=== PATIENT | female | born 1955 | race Caucasian/White ===

== ENCOUNTER → 2018-08-03 12:48 | Outpatient (CLI) | payer OTHER, SELFPAY ==
[2018-08-03 14:26] LABS: Blood Urea Nitrogen 18 mg/dL (7-17); Estimated Glomerular Filt Rate > 60.0 mL/min (>60)
== END ==
PROVIDERS: Family Provider Internal Medicine; PCP Internal Medicine; Visit Provider Internal Medicine
DX: M81.0 Age-related osteoporosis without current pathological fracture (principal)
CPT/HCPCS: 36415; 82565; 84520

== ENCOUNTER → 2021-08-09 09:13 | Outpatient (CLI) | payer MEDICARE, OTHER, SELFPAY ==
--- NOTE | 2021-08-09 | DI.RAD.S_ITS ---
PROCEDURE: XR DEXA AXIAL SKELETON INDICATIONS: Age-related osteoporosis without current pathologi COMPARISON: None. FINDINGS: This blank DEXA report has been sent in error by the PACS system. The correct and complete report will be forthcoming in 1-2 days. Thank you for your patience and understanding. Dictated by: Kaylee Heard MD, PhD on 08/09/2021 at 14:32 Approved by: Kaylee Heard MD, PhD on 08/09/2021 at 14:32
== END ==
PROVIDERS: Family Provider Internal Medicine; PCP Internal Medicine; Referring Provider Internal Medicine; Visit Provider Internal Medicine
DX: M85.88 Other specified disorders of bone density and structure, other site (principal); Z78.0 Asymptomatic menopausal state
CPT/HCPCS: 77080

== ENCOUNTER → 2021-12-10 06:38 | Outpatient (CLI) | payer MEDICARE, OTHER, SELFPAY ==
--- NOTE | 2021-12-10 | DI.MRI.S_ITS ---
PROCEDURE: MR BRAIN (IAC) WWO CON INDICATIONS: Sensorineural hearing loss, unilateral, left ear TECHNIQUE: Noncontrast sagittal T1 spin echo, axial FLAIR, axial gradient echo, axial diffusion and ADC through the brain. Axial thin-slice 3D CISS, coronal TruFISP, axial T1 spin echo with fat saturation through the internal auditory canals. After the administration of contrast, thin slice axial and coronal T1 spin echo with fat saturation through the internal auditory canals, and axial T1 spin echo with fat saturation through the brain. COMPARISON: None. FINDINGS: Image quality: Excellent. Cerebellopontine angles: No cerebellopontine angle masses. Inner ear structures appear normally formed. No suspicious enhancement in the internal auditory canal or along the course of the 7th cranial nerve. CSF spaces: Ventricles are normal in size and shape. No extra-axial fluid collections. Basal cisterns are patent. Brain: No intracranial bleeds or mass effects. Marshall-white matter interface is intact. No abnormal intracranial enhancement. Diffusion weighted images demonstrate no acute ischemic insults. Brainstem appears normal. Normal intravascular flow voids are present. Skull and face: Calvarial marrow signal is normal. Orbits appear normal. Sinuses: Sinuses and mastoids are predominantly clear. IMPRESSION: No finding to explain sensorineural hearing loss. Otherwise normal MRI of the brain. Dictated by: Woodrow Padilla M.D. on 12/10/2021 at 9:03 Approved by: Woodrow Padilla M.D. on 12/10/2021 at 9:05
== END ==
PROVIDERS: Family Provider Internal Medicine; PCP Internal Medicine; Referring Provider Otolaryngology; Visit Provider Otolaryngology
DX: H90.42 Sensorineural hearing loss, unilateral, left ear, with unrestricted hearing on the contralateral side (principal)
CPT/HCPCS: 70553

== ENCOUNTER 2022-02-17 09:47 | Emergency (ER) | payer MEDICARE, OTHER, SELFPAY ==
[2022-02-17 09:53] VITALS: BP 164/76; PULSE 86; RESP 14; TEMP 37.1; O2SAT 99; BMI 25.0
[2022-02-17 09:58] VITALS: PULSE 83; O2SAT 99
[2022-02-17 09:59] VITALS: BP 164/76; PULSE 88; O2SAT 99
[2022-02-17 10:00] VITALS: BP 169/84; PULSE 82; O2SAT 99
--- NOTE | 2022-02-17 10:07 | DI.CT.S_ITS ---
PROCEDURE: CT ANGIO HEAD AND NECK INDICATIONS: right eye visual changes resolved TECHNIQUE: Pre-contrast 4.5 mm thick sections acquired from the foramen magnum to the vertex. After the administration of intravenous contrast, 1 mm thick sections acquired from the aortic arch through the [place] of Harris. Post-contrast 4.5 mm thick sections then re-acquired from the foramen magnum to the vertex. 3-dimensional dbazgts-bhrdmywvi-rnhbmdiybt (MIP) and/or volume rendering reformats were acquired of the central intracranial vasculature and neck separately. For radiation dose reduction, the following was used: automated exposure control, adjustment of mA and/or kV according to patient size. COMPARISON: [facility], CT, HEAD WITHOUT CONTRAST, 11/15/2013, 13:53. [facility], MR, MR IAC (BRAIN) WWO CON, 12/10/2021, 6:50. FINDINGS: Image quality: Excellent. BRAIN: CSF spaces: Ventricles are normal in size and shape. Basal cisterns are patent. No extra-axial fluid collections. Brain: No midline shift. No intracranial bleeds or masses. Marshall-white matter interface appears intact. Skull and face: Calvarium and facial bones appear intact, without suspicious lesions. Orbits appear normal. Sinuses: Mucosal thickening or mucous retention cyst at the right maxillary sinus. Mastoids are clear. HEAD CT ANGIOGRAPHY: Anterior circulation: Intracranial internal carotid arteries are normal in size and flow. The flow within the paired anterior cerebral arteries is normal and symmetric. The flow within the middle cerebral arteries is normal and symmetric. The anterior communicating artery is seen. No aneurysms are seen. Posterior circulation: Visualized portions of the vertebral arteries demonstrate normal caliber, and join to form a normal appearing basilar artery. Flow within the posterior cerebral arteries is normal and symmetric. No aneurysms are seen. NECK CT ANGIOGRAPHY: Carotid system: Mild plaque at the aortic arch. The great vessels demonstrate a conventional anatomy as they arise from the aortic arch. The origins of the common carotid arteries appear patent. The common carotid arteries demonstrate normal caliber and courses. The bifurcation regions are both widely patent. Minimal plaque at the left carotid bulb. The internal carotid arteries demonstrate normal calibers and courses. Posterior circulation: The origins of the vertebral arteries both appear widely patent. The more superior extracranial portions of both vertebral arteries also demonstrate normal courses and calibers. They join to form a normal appearing basilar artery. Soft tissues: Visualized neck soft tissues demonstrate no suspicious abnormalities. Bones: No suspicious bony lesions. Visualized cervical spine appears normally aligned. IMPRESSION: 1. No acute intracranial hemorrhage. 2. No large vessel occlusion. 3. No critical stenosis. Any quantitative measurements of stenosis were performed using NASCET criteria. Dictated by: Ryan Cline M.D. on 02/17/2022 at 11:30 Approved by: Ryan Cline M.D. on 02/17/2022 at 11:41
--- NOTE | 2022-02-17 10:14 | ED_ITS ---
HPI - Neuro Symptoms/Deficit General Chief Complaint: Eye Problems Stated Complaint: Poss TIA sent by [facility] Time Seen by Provider: 02/17/22 10:02 Source: patient Mode of arrival: Ambulatory History of Present Illness HPI Narrative: Patient is a 66-year-old female who has no past medical history presenting with right eye visual changes. She had some circular blackening in her right upper quadrant 2 days ago. It came and went a couple of times in the evening. She said it lasted for 10 minutes at a time and happened about 3 times and has gone away. At no time did she have any facial droop difficulty speaking numbness tingling or weakness. She has no prior history of TIA or CVA. She has no chest pain or shortness of breath. She does have a cataract in that eye. She went and saw her radiocommunications technician who looked at her I said she is not having a retinal detachment or any other ocular problems was recommended that she be checked for a TIA. She culture PCP this morning who recommended she come to the ED for further evaluation. At this time patient is completely asymptomatic. On Anticoagulants: No Related Data Home Medications Medication Instructions Recorded Confirmed [FOLIC ACID] 800 PO QDAY ##0 11/17/10 11/20/19 [VITAMIN D-3] 2,000 PO PRN PRN ##0 11/17/10 11/20/19 calcium carbonate 500 mg-vitamin 1 tab PO ##0 09/16/16 11/20/19 D3 5 mcg (200 unit) tablet (Oyster Shell Calcium-Vitamin D3) miconazole nitrate 2 % topical 30 gm TP ##0 10/20/17 11/20/19 powder (Zeasorb AF) omeprazole 20 mg capsule,delayed 20 mg PO DAILY 11/02/11/20/19 release Previous Rx's Medication Instructions Recorded estradiol 2 mg (7.5 mcg/24 hour) See Rx Instructions .Route 06/18/21 vaginal ring (Estring) .COMPLEX ##1 Allergies Allergy/AdvReac Type Severity Reaction Status Date / Time peanut Allergy Intermediate BLISTERS Verified 02/17/22 10:03 TO TONGUE, RASH Pork/Porcine Containing AdvReac Intermediate VOMITING Verified 02/17/22 10:03 Products Review of Systems Review of Systems Narrative: GENERAL: Denies chills, fatigue, malaise, fever, sweats, travel HEENT:+ eye changes, see HPI Denies sinus pain, ear pain, sore throat, d ifficulty swallowing, neck pain RESPIRATORY: Denies dyspnea, cough, wheezing, hemoptysis, sputum. CARDIOVASCULAR: Denies chest pain, palpitations, orthopnea, edema GASTROINTESTINAL: Denies nausea, vomiting, abdominal pain, diarrhea, constipation, melena. : Denies dysuria, frequency, incontinence, hematuria, urinary retention, flank pain. MUSCULOSKELETAL: Denies weakness, joint pain, or bony pain SKIN: No rash, no erythema, no pruritus NEUROLOGIC: Denies weakness, dizziness, headache, numbness, change in speech, confusion PSYCHIATRIC: No concerning psychosocial issues. 12 point review of systems is negative except for those stated above and HPI Hematologic/Lymphatic On Anticoagulants: No Patient History Surgical History Status post appendectomy Status post arthroscopy Status post delivery Status post rhinoplasty Status post tonsillectomy and adenoidectomy Family History Brother Age: 71 Smoker Father Age: 94 Cancer Hypertension High cholesterol Bladder cancer Grandfather Cancer Hypertension Chlorine gas exposure Mother Age: 94 Atrial fibrillation Hypertension High cholesterol Mental health problem Grandfather Diabetes mellitus Heart disease High cholesterol Grandmother Asthma Sister Age: 74 Breast cancer Brain cancer Social History Smoking Status: Never smoker Smoking Status: Never smoker alcohol intake frequency: holidays/special occasions only Substance Use Type: does not use Exam Initial Vital Signs Initial Vital Signs: Vital Signs Temperature 98.7 F 02/17/22 09:53 Pulse Rate 86 02/17/22 09:53 Respiratory Rate 14 02/17/22 09:53 Blood Pressure 164/76 H 02/17/22 09:53 Pulse Oximetry 99 02/17/22 09:53 Oxygen Delivery Method 02/17/22 09:53 GENERAL: Alert well-appearing 66-year-old female HEENT: Head atraumatic,EOMI, pupils reactive, face symmetric, moist mucous membranes CARDIOVASCULAR: Regular rate and rhythm without murmurs, rubs or gallops. RESPIRATORY: Breath sounds equal bilaterally, no wheezes rales or rhonchi. ABDOMEN: Soft, nontender. Normoactive bowel sounds all 4 quadrants. No guarding or rebound. EXTREMITIES: Normal range of motion, no clubbing or edema. Neurovascularly intact NEUROLOGICAL: Alert and oriented x4.Normal gait and speech. Cranial nerves II through XII grossly intact. Good jojurn-ai-bcqo, good xdjl-li-zpdk, strength equal bilaterally, no dysarthria or aphasia, sensation in tact to soft touch bilaterally, no visual changes, no facial droop no peripheral visual loss SKIN: Warm, dry, no laceration, no petechiae, no rashes or lesions. Scores NIH Stroke Scale Level of Conciousness: Alert, keenly responsive Ask month/age: Answers both questions correctly. Open/close eyes, close hand: Performs both tasks correctly Best gaze horizontal: Normal Visual drake: No visual loss Facial palsy: Normal symetrical movement Left arm drift: No drift for full 10 sec Right arm drift: No drift for full 10 sec Left leg drift: No drift for full 5 sec Right leg drift: No drift for full 5 sec Limb ataxia: Absent Sensory on face/arms/legs: Normal, no sensory loss Best language: No aphasia, normal Dysarthria: Normal Extinction or inattention: No abnormality Total NIH Stroke scale score: 0 Course Orders Ordered: ED Orders 02/17/22 10:07 CT angio head and neck Stat EKG-12 Lead Stat 02/17/22 10:13 Complete Blood Count AUTO DIFF Stat Comprehensive Metabolic Panel Stat Lipase Stat Troponin & CK Cardiac Panel Stat Vital Signs Vital signs: Vital Signs - 8 hr 02/17/22 09:53 02/17/22 09:58 02/17/22 09:59 Temperature 98.7 F Pulse Rate 86 83 Respiratory Rate 14 Blood Pressure 164/76 H 164/76 H Pulse Oximetry 99 99 Oxygen Delivery Method Room Air 02/17/22 09:59 02/17/22 10:00 02/17/22 10:00 Temperature Pulse Rate 88 82 Respiratory Rate Blood Pressure 169/84 H Pulse Oximetry 99 99 Oxygen Delivery Method 02/17/22 10:30 02/17/22 10:30 Temperature Pulse Rate 74 Respiratory Rate Blood Pressure 124/72 Pulse Oximetry 98 Oxygen Delivery Method MDM - Neuro Symptoms/Deficit Lab Data Result diagrams: 02/17/22 10:13 02/17/22 10:13 Labs: Lab Results 02/17/22 02/17/22 Range/Units 10:13 10:13 WBC 4.3 L (4.5-11.0) X10^3/uL RBC 4.23 (4.0-5.2) X10^6/uL Hgb 13.2 (12.0-16.0) g/dL Hct 38.5 (36-46) % MCV 91.2 (80-100) fL MCH 31.3 (26-34) PG MCHC 34.3 (30-36) % RDW 12.7 (11.6-14.8) % Plt Count 212 (150-400) X10^3/uL Neut % (Auto) 55.3 (50-75) % Lymph % (Auto) 34.9 (25-40) % Bradford % (Auto) 7.9 (3-14) % Eos % (Auto) 1.0 L (2-4) % Baso % (Auto) 0.9 (0-2) % Neut # (Auto) 2400 (7668-0666) /uL Lymph # (Auto) 1500 (4524-0186) /uL Bradford # (Auto) 300 (0-900) /uL Eos # (Auto) 0 (0-450) /uL Baso # (Auto) 0 (0-100) /uL Sodium 143 (137-145) mmol/L Potassium 4.0 (3.4-5.1) mmol/L Chloride 104 (98-107) mmol/L Carbon Dioxide 28 (22-32) mmol/L BUN 16 (7-17) mg/dL Creatinine 0.74 (0.52-1.04) mg/dL Estimated GFR > 60 (>60) mL/min BUN/Creatinine Ratio 21.6 (6-22) Glucose 100 (80-110) mg/dL Calcium 9.3 (8.4-10.2) mg/dL Total Bilirubin 0.6 (0.2-1.3) mg/dL AST 25 (14-36) IU/L ALT 25 (<35) IU/L Alkaline Phosphatase 54 (38-126) U/L Total Creatine Kinase 113 (30-135) U/L CK-MB (CK-2) 1.04 (<2.37) ng/mL CK-MB (CK-2) Rel Index 0.9 L (1.5-5.0) % Troponin I < 0.012 (0.01-0.034) ng/mL Total Protein 7.6 (6.3-8.2) g/dL Albumin 4.7 (3.5-5.0) g/dL Globulin 2.9 (1.7-4.1) g/dL Albumin/Globulin Ratio 1.6 (1.0-2.8) Lipase 122 (23-300) U/L Imaging Data CTA - brain/neck: Radiologist's Impression: [address] [place] [id number] Scan Report Signed Patient: Deisy Sofia MR#: [id number] : 1955 Acct:[id number] Age/Sex: 66 / F Date of Service: 02/17/22 Loc: ED Accession Number: [id number] ?? Procedure: CT angio head and neck Ordering Provider: Kristen Davis D.O. PROCEDURE:? CT ANGIO HEAD AND NECK ? INDICATIONS:? right eye visual changes resolved ? TECHNIQUE:? Pre-contrast 4.5 mm thick sections acquired from the foramen magnum to the vertex.? After the administration of intravenous contrast, 1 mm thick sections acquired from the aortic arch through the [place] of [place].? Post-contrast 4.5 mm thick sections then re- acquired from the foramen magnum to the vertex.? 3-dimensional dyjwqww-nctkviiyt-lxzlinkehp (MIP) and/or volume rendering reformats were acquired of the central intracranial vasculature and neck separately. For radiation dose reduction, the following was used:? automated exposure control, adjustment of mA and/or kV according to patient size.? ? COMPARISON:? [facility], CT, HEAD WITHOUT CONTRAST, 11/15/2013, 13:53.? [facility], MR, MR IAC (BRAIN) WWO CON, 12/10/2021, 6:50. ? FINDINGS:? Image quality:? Excellent.? ? BRAIN:? CSF spaces:? Ventricles are normal in size and shape.? Basal cisterns are patent.? No extra-axial fluid collections.? ? Brain:? No midline shift.? No intracranial bleeds or masses.? Marshall-white matter interface appears intact.? ? Skull and face:? Calvarium and facial bones appear intact, without suspicious lesions.? Orbits appear normal.? ? Sinuses:? Mucosal thickening or mucous retention cyst at the right maxillary sinus.? Mastoids are clear. ? HEAD CT ANGIOGRAPHY:? Anterior circulation:? Intracranial internal carotid arteries are normal in size and flow.? The flow within the paired anterior cerebral arteries is normal and symmetric.? The flow within the middle cerebral arteries is normal and symmetric.? The anterior communicating artery is seen.? No aneurysms are seen.? ? Posterior circulation:? Visualized portions of the vertebral arteries demo nstrate normal caliber, and join to form a normal appearing basilar artery.? Flow within the posterior cerebral arteries is normal and symmetric.? No aneurysms are seen.? ? NECK CT ANGIOGRAPHY:? Carotid system:? Mild plaque at the aortic arch.? The great vessels demonstrate a conventional anatomy as they arise from the aortic arch.? The origins of the common carotid arteries appear patent.? The common carotid arteries demonstrate normal caliber and courses.? The bifurcation regions are both widely patent.? Minimal plaque at the left carotid bulb.? The internal carotid arteries demonstrate normal calibers and courses.? ? Posterior circulation:? The origins of the vertebral arteries both appear widely patent.? The more superior extracranial portions of both vertebral arteries also demonstrate normal courses and calibers.? They join to form a normal appearing basilar artery.? ? Soft tissues:? Visualized neck soft tissues demonstrate no suspicious abnormalities.? ? Bones:? No suspicious bony lesions.? Visualized cervical spine appears normally aligned.? IMPRESSION:? 1. No acute intracranial hemorrhage. ? 2. No large vessel occlusion. ? 3. No critical stenosis. ? ? Any quantitative measurements of stenosis were performed using NASCET criteria.? ? ? Dictated by: Ryan Cline M.D. on 02/17/2022 at 11:30 ?? ECG Data Interpretation: Normal sinus rhythm rate 70 p.r. interval 126 QRS [address] changes no T- wave inversions no priors to compare MDM Narrative Medical decision making narrative: Has some visual changes 2 days ago which have completely resolved and not returned. She ceiling and evaluated by ophthalmology determined it was not optic in nature. CT angio today is negative. It is possible that she did have minor TIA. Recommend aspirin daily she can follow up with her primary for provider. Discharge Plan Departure Patient Disposition: Home Clinical Impression: Brain TIA Instructions: DI for Transient Ischemic Attack Activity Restrictions/Additional Instructions: *You have been diagnosed with possible TIA *What to do: At this time your workup in the emergency department is negative. However I do recommend MRI and echocardiogram with your pcp *Continue to take medications as directed Aspirin 81 mg daily *Follow up with your primary care provider in 2-3 days or call [phone] *Return to ER if you should have recurrent visual changes numbness tingling weakness facial droop or any new, worsening or concerning symptoms Prescriptions: No Action [FOLIC ACID] 800 PO QDAY Qty: 0 [VITAMIN D-3] 2,000 PO PRN PRNQty: 0 calcium carbonate-vitamin D3 [Oyster Shell Calcium-Vit D3] 1,250 MG/200 IU tablet 1 tab PO Qty: 0 miconazole nitrate [Zeasorb AF] 70 GM powder 30 gm TP Qty: 0 Estring 2 mg (7.5 mcg /24 hour) ring See Rx Instructions .ROUTE .COMPLEX Qty: 1 3RF Dose Instruction: INSERT ONE VAGINAL RING VAGINALLY, REMOVE IN 3 MONTHS Rx Instructions: INSERT ONE VAGINAL RING VAGINALLY, REMOVE IN 3 MONTHS omeprazole 20 mg capsule,delayed release(DR/EC) 20 mg PO DAILY Referrals: Brielle Butler MD [Primary Care Provider] - Visit Report Forms: Patient Portal/API
[2022-02-17 10:26] LABS: Add Manual Diff / Slide Review NO; Basophils Absolute Auto 0 /uL (0-100); Basophils Percent Auto 0.9 % (0-2); Eosinophils Absolute Auto 0 /uL (0-450); Hematocrit 38.5 % (36-46); Hemoglobin 13.2 g/dL (12.0-16.0); Lymphocytes Absolute Auto 1500 /uL (1100-4500); Lymphocytes Percent Auto 34.9 % (25-40); Mean Corpuscular HGB Conc 34.3 % (30-36); Mean Corpuscular Hemoglobin 31.3 PG (26-34); Mean Corpuscular Volume 91.2 fL (80-100); Monocytes Absolute Auto 300 /uL (0-900); Monocytes Percent Auto 7.9 % (3-14); Neutrophils Absolute Auto 2400 /uL (1500-7000); Neutrophils Percent Auto 55.3 % (50-75); Platelet Count 212 X10^3/uL (150-400); Red Blood Cell Count 4.23 X10^6/uL (4.0-5.2); Red Cell Distribution Width 12.7 % (11.6-14.8); White Blood Cell Count 4.3 X10^3/uL (4.5-11.0)
[2022-02-17 10:30] VITALS: BP 124/72; PULSE 74; O2SAT 98
[2022-02-17 10:43] LABS: Alanine Aminotransferase 25 IU/L (<35); Albumin 4.7 g/dL (3.5-5.0); Albumin Globulin Ratio 1.6 (1.0-2.8); Alkaline Phosphatase 54 U/L (38-126); Aspartate Aminotransferase 25 IU/L (14-36); BUN Creatinine Ratio 21.6 (6-22); Bilirubin Total 0.6 mg/dL (0.2-1.3); Blood Urea Nitrogen 16 mg/dL (7-17); Calcium 9.3 mg/dL (8.4-10.2); Carbon Dioxide 28 mmol/L (22-32); Chloride 104 mmol/L (98-107); Creatine Kinase 113 U/L (30-135); Estimated Glomerular Filt Rate > 60 mL/min (>60); Globulin 2.9 g/dL (1.7-4.1); Glucose 100 mg/dL (80-110); HEMOLYSIS < 15 (0-50); Lipase 122 U/L (23-300); Sodium 143 mmol/L (137-145); Total Protein 7.6 g/dL (6.3-8.2)
[2022-02-17 10:55] LABS: Troponin I < 0.012 ng/mL (0.01-0.034)
[2022-02-17 10:59] LABS: CKMB % Relative Index 0.9 % (1.5-5.0); Creatine Kinase MB 1.04 ng/mL (<2.37)
== END 2022-02-17 12:03 | disposition home or self-care (01) ==
PROVIDERS: Emergency Provider Emergency Medicine; Family Provider Internal Medicine; PCP Family Medicine
DX: G45.9 Transient cerebral ischemic attack, unspecified (principal); R03.0 Elevated blood-pressure reading, without diagnosis of hypertension
CPT/HCPCS: 36415; 70496; 70498; 80053; 82550; 82553; 83690; 84484; 85025; 93005; 93010; 99283; Q9967

== ENCOUNTER 2022-02-18 14:43 | Emergency (ER) | payer MEDICARE, OTHER, SELFPAY ==
[2022-02-18 15:04] VITALS: BP 141/84; PULSE 80; RESP 20; TEMP 36.2; O2SAT 98; BMI 24.4
--- NOTE | 2022-02-18 15:40 | DI.MRI.S_ITS ---
PROCEDURE: MR HEAD/BRAIN WO CON INDICATIONS: Visual changes full workup couple days ago TECHNIQUE: Noncontrast axial T1 spin echo, axial T2 fast spin echo, sagittal and axial FLAIR, coronal T2 fast spin echo, axial gradient echo, axial diffusion and ADC through the brain. COMPARISON: [facility], MR, MR IAC (BRAIN) WWO CON, 12/10/2021, 6:50. FINDINGS: Image quality: Excellent. CSF Spaces: Basal cisterns are patent. No extra-axial fluid collections. Ventricles are normal in size and shape. Brain: No intracranial masses or hemorrhage. Marshall/white matter interface is normal. Brainstem appears normal. Diffusion-weighted images demonstrate no acute ischemic insult. No chronic ischemic insults. Normal intravascular flow voids are present. Skull and face: Calvarium has normal marrow signal. Orbits appear normal. Sinuses: Sinuses and mastoids are clear. IMPRESSION: No acute finding. No abnormality to explain symptoms. No significant change from 12/10/2021 exam. Dictated by: Woodrow Padilla M.D. on 02/18/2022 at 18:41 Approved by: Woodrow Padilla M.D. on 02/18/2022 at 18:46
[2022-02-18 16:18] VITALS: BP 124/70; PULSE 73; RESP 18; O2SAT 100
[2022-02-18 17:09] VITALS: BP 119/67; PULSE 72; RESP 16; O2SAT 98
--- NOTE | 2022-02-18 18:39 | ED.NEUROSD ---
HPI - Neuro Symptoms/Deficit General Chief Complaint: Eye Problems Stated Complaint: Visual Disturbance in Rt Eye Time Seen by Provider: 02/18/22 18:06 Source: patient Mode of arrival: Ambulatory History of Present Illness HPI Narrative: Patient is a 66-year-old female with no past medical history presenting with right eye visual changes. I saw and evaluated her yesterday. She had a full workup including head CT CT angio blood work EKG. She has intermittently had these right upper quadrant visual changes which she describes as a black cervical. Yesterday her workup was negative she has follow-up with her PCP she has been taking aspirin. She has no prior history. She does have a cataract not eye. She actually saw an granite countertop installer it was determined that she does not have a retinal detachment or ocular problem. She was driving today around 2:15pm when she again had a visual change. She said it lasted very briefly. Under 5 minutes she again had absolutely no other symptoms. I instructed her yesterday to return if her symptoms return. On Anticoagulants: No Related Data Home Medications Medication Instructions Recorded Confirmed [FOLIC ACID] 800 PO QDAY ##0 11/17/10 11/20/19 [VITAMIN D-3] 2,000 PO PRN PRN ##0 11/17/10 11/20/19 calcium carbonate 500 mg-vitamin 1 tab PO ##0 09/16/16 11/20/19 D3 5 mcg (200 unit) tablet (Oyster Shell Calcium-Vitamin D3) miconazole nitrate 2 % topical 30 gm TP ##0 10/20/17 11/20/19 powder (Zeasorb AF) omeprazole 20 mg capsule,delayed 20 mg PO DAILY 11/02/18 11/20/19 release Previous Rx's Medication Instructions Recorded estradiol 2 mg (7.5 mcg/24 hour) See Rx Instructions .Route 06/18/21 vaginal ring (Estring) .COMPLEX ##1 Allergies Allergy/AdvReac Type Severity Reaction Status Date / Time peanut Allergy Intermediate BLISTERS Verified 02/18/22 15:12 TO TONGUE, RASH Pork/Porcine Containing AdvReac Intermediate VOMITING Verified 02/18/22 15:12 Products Review of Systems Review of Systems Narrative: GENERAL: Denies chills, fatigue, malaise, fever, sweats, travel HEENT: See HPI RESPIRATORY: Denies dyspnea, cough, wheezing, hemoptysis, sputum. CARDIOVASCULAR: Denies chest pain, palpitations, orthopnea, edema GASTROINTESTINAL: Denies nausea, vomiting, abdominal pain, diarrhea, constipation, melena. : Denies dysuria, frequency, incontinence, hematuria, urinary retention, flank pain. MUSCULOSKELETAL: Denies weakness, joint pain, or bony pain SKIN: No rash, no erythema, no pruritus NEUROLOGIC: Denies weakness, dizziness, headache, numbness, change in speech, confusion PSYCHIATRIC: No concerning psychosocial issues. 12 point review of systems is negative except for those stated above and HPI Hematologic/Lymphatic On Anticoagulants: No Patient History Surgical History Status post appendectomy Status post arthroscopy Status post delivery Status post rhinoplasty Status post tonsillectomy and adenoidectomy Family History Brother Age: 71 Smoker Father Age: 94 Cancer Hypertension High cholesterol Bladder cancer Grandfather Cancer Hypertension Chlorine gas exposure Mother Age: 94 Atrial fibrillation Hypertension High cholesterol Mental health problem Grandfather Diabetes mellitus Heart disease High cholesterol Grandmother Asthma Sister Age: 74 Breast cancer Brain cancer Social History Smoking Status: Never smoker Smoking Status: Never smoker alcohol intake frequency: holidays/special occasions only Substance Use Type: does not use Exam Initial Vital Signs Initial Vital Signs: Vital Signs Temperature 97.2 F L 02/18/22 15:04 Pulse Rate 80 02/18/22 15:04 Respiratory Rate 20 02/18/22 15:04 Blood Pressure 141/84 H 02/18/22 15:04 Pulse Oximetry 98 02/18/22 15:04 Oxygen Delivery Method 02/18/22 15:04 GENERAL: Alert pleasant 66-year-old male and in no acute distress. HEENT: Head atraumatic,EOMI, pupils reactive, face symmetric, moist mucous membranes CARDIOVASCULAR: Regular rate and rhythm without murmurs, rubs or gallops. RESPIRATORY: Breath sounds equal bilaterally, no wheezes rales or rhonchi. EXTREMITIES: Normal range of motion, no clubbing or edema. Neurovascularly intact NEUROLOGICAL: Alert and oriented x4.Normal gait and speech. Cranial nerves II through XII grossly intact. Good [id number], good kuuc-cm-wket, strength equal bilaterally, no dysarthria or aphasia, sensation in tact to soft touch bilaterally, no visual changes, no facial droop SKIN: Warm, dry, no laceration, no petechiae, no rashes or lesions. Scores NIH Stroke Scale Level of Conciousness: Alert, keenly responsive Ask month/age: Answers both questions correctly. Open/close eyes, close hand: Performs both tasks correctly Best gaze horizontal: Normal Visual drake: No visual loss Facial palsy: Normal symetrical movement Left arm drift: No drift for full 10 sec Right arm drift: No drift for full 10 sec Left leg drift: No drift for full 5 sec Right leg drift: No drift for full 5 sec Limb ataxia: Absent Sensory on face/arms/legs: Normal, no sensory loss Best language: No aphasia, normal Dysarthria: Normal Extinction or inattention: No abnormality Total NIH Stroke scale score: 0 Course Orders Ordered: ED Orders 02/18/22 15:40 MR head/brain wo con Stat Vital Signs Vital signs: Vital Signs - 8 hr 02/18/22 15:04 02/18/22 16:18 02/18/22 17:09 Temperature 97.2 F L Pulse Rate 80 73 72 Respiratory Rate 20 18 16 Blood Pressure 141/84 H 124/70 119/67 Pulse Oximetry 98 100 98 Oxygen Delivery Method Room Air 02/18/22 18:49 Temperature Pulse Rate 75 Respiratory Rate 18 Blood Pressure 125/71 Pulse Oximetry 98 Oxygen Delivery Method MDM - Neuro Symptoms/Deficit Imaging Data MR brain: Radiologist's Impression: Deisy centeno MR#: [id number] : 1955 Acct:[id number] Age/Sex: 66 / F Date of Service: 02/18/22 Loc: ED Accession Number: [id number] ?? Procedure: MR head/brain wo con Ordering Provider: Kristen Davis D.O. PROCEDURE:? MR HEAD/BRAIN WO CON ? INDICATIONS:? Visual changes full workup couple days ago ? TECHNIQUE:? Noncontrast axial T1 spin echo, axial T2 fast spin echo, sagittal and axial FLAIR, coronal T2 fast spin echo, axial gradient echo, axial diffusion and ADC through the brain.? ? COMPARISON:? [facility], , MR IAC (BRAIN) WWO CON, 12/10/2021, 6:50. ? FINDINGS:? Image quality:? Excellent.? ? CSF Spaces:? Basal cisterns are patent.? No extra-axial fluid collections.? Ventricles are normal in size and shape.? ? Brain:? No intracranial masses or hemorrhage.? Marshall/white matter interface is normal.? Brainstem appears normal.? Diffusion-weighted images demonstrate no acute ischemic insult.? No chronic ischemic insults.? Normal intravascular flow voids are present.? ? Skull and face:? Calvarium has normal marrow signal.? Orbits appear normal.? ? Sinuses:? Sinuses and mastoids are clear.? ? IMPRESSION:? No acute finding.? No abnormality to explain symptoms.? No significant change from 12/10/2021 exam. ? ? Dictated by: Woodrow Padilla M.D. on 02/18/2022 at 18:41 ? ? Approved by: Woodrow Padilla M.D. on 02/18/2022 at 18:46 ? MDM Narrative Medical decision making narrative: Patient is not a tPA candidate. Her symptoms last for under 5 minutes a completely resolved. She does blood work and CT angio yesterday, I really do not see any need to repeat any of this today.. MRI is negative today. She actually had MRI in December which was also negative. She has already been to an granite countertop installer this week as well as to the ER twice she has had full workup. At this time I feel that is safe for her to be discharged. I do strongly recommend she continue taking aspirin daily. And follow-up with possible specialty like Neurology or ophthalmology again. Discharge Plan Departure Patient Disposition: Home Clinical Impression: Change in vision Instructions: DI for Eye Floaters Activity Restrictions/Additional Instructions: *You have been diagnosed with visual changes *What to do: At this time her MRI does not show any sort of stroke. Not completely convinced her having mild stroke. I do recommend further testing with her PCP *Continue to take medications as directed Please continue aspirin 81 mg once daily *Follow up with your primary care provider in 2-3 days or call [phone] *Return to ER if you should have symptoms lasting longer than 1 hour or more symptoms associated with vision or any new, worsening or concerning symptoms Prescriptions: No Action [FOLIC ACID] 800 PO QDAY Qty: 0 [VITAMIN D-3] 2,000 PO PRN PRNQty: 0 calcium carbonate-vitamin D3 [Oyster Shell Calcium-Vit D3] 1,250 MG/200 IU tablet 1 tab PO Qty: 0 miconazole nitrate [Zeasorb AF] 70 GM powder 30 gm TP Qty: 0 Estring 2 mg (7.5 mcg /24 hour) ring See Rx Instructions .ROUTE .COMPLEX Qty: 1 3RF Dose Instruction: INSERT ONE VAGINAL RING VAGINALLY, REMOVE IN 3 MONTHS Rx Instructions: INSERT ONE VAGINAL RING VAGINALLY, REMOVE IN 3 MONTHS omeprazole 20 mg capsule,delayed release(DR/EC) 20 mg PO DAILY Referrals: Brielle Butler MD [Primary Care Provider] -
[2022-02-18 18:49] VITALS: BP 125/71; PULSE 75; RESP 18; O2SAT 98
== END 2022-02-18 19:20 | disposition home or self-care (01) ==
PROVIDERS: Emergency Provider Emergency Medicine; Family Provider Internal Medicine; PCP Family Medicine
DX: H53.9 Unspecified visual disturbance (principal)
CPT/HCPCS: 70551; 99283

== ENCOUNTER → 2022-06-06 06:49 | Outpatient (CLI) | payer MEDICARE, OTHER, SELFPAY ==
--- NOTE | 2022-06-06 07:21 | DI.ECHO.S_ITS ---
Interpretation Summary Left ventricular systolic function is normal with an estimated ejection fraction of 60 to 65% without any focal wall motion abnormality. Left ventricular size and wall thickness appear normal with probable normal diastolic function and normal filling pressures. The right ventricle appears normal. Right ventricular systolic pressure cannot be estimated but CVP is likely around 3 mmHg. Both atria are normal in size. There is no significant valvular abnormality. Procedure: A two-dimensional transthoracic echocardiogram with color flow and Doppler was performed. The study quality was technically adequate. There is no prior echocardiogram noted for this patient. The patient was in normal sinus rhythm during the exam. Left Ventricle: The left ventricle appears normal in size, wall thickness, and systolic function without any focal wall motion abnormalities. The ejection fraction is estimated to be 60-65%. Diastolic parameters suggest probable normal left ventricular diastolic function and normal filling pressures. Right Ventricle: The right ventricle is normal in size and function. Atria: Both atria are normal in size. Right atrial volume index is 11.0 mL/m??. The interatrial septum grossly appears intact with no obvious evidence for an atrial septal defect. Mitral Valve: There is mild mitral annular calcification. There is trace mitral regurgitation. Aortic Valve: The aortic valve is trileaflet. The aortic valve is slightly calcified. The aortic valve opens well. No aortic regurgitation is present. Tricuspid Valve: The tricuspid valve is normal in structure and function. There is trace tricuspid regurgitation. Pulmonary artery pressures cannot be estimated because of the lack of a measurable TR jet velocity but the IVC suggests a CVP of around 3 mmHg. Pulmonic Valve: The pulmonic valve is normal in structure and function. There is a trace or physiologic amount of pulmonic regurgitation. There is no significant valvular heart disease. Great Vessels: The aortic root is normal size. The dimensions of the ascending aorta are normal. The IVC is of normal diameter and collapses greater than 50% with a sniff. This suggests a low right atrial pressure of 3 mm Hg. Pericardium/ Pleura There is no pericardial effusion. There is no pleural effusion. MMode/2D Measurements & Calculations LVIDd: 4.5 cm LVOT diam: 1.8 cm LVIDs: 2.9 cm asc Aorta Diam: 2.5 cm FS: 35.6 % IVSd: 0.80 cm LVPWd: 0.80 cm LV montanez. diameter/BSA (cm/m^2): 2.9 LV sys. diameter/BSA (cm/m^2): 1.9 LA dimension: 3.7 cm RA long axis: 4.0 cm LA A2 area: 11.9 cm2 LA A4 area: 11.4 cm2 LA length (vol): 4.0 cm LA vol: 28.8 ml LA vol index: 18.8 ml/m2 TAPSE_phl: 2.4 cm Doppler Measurements & Calculations Ao V2 max: 113.0 cm/sec LVOT Max Al: 88.1 cm/sec Ao V2 mean: 81.2 cm/sec LV V1 max P.1 mmHg Ao max P.0 mmHg LV V1 VTI: 20.8 cm Ao mean P.0 mmHg TOMEKA(I,D): 2.1 cm2 Ao V2 VTI: 25.5 cm TOMEKA(V,D): 2.0 cm2 sev ratio: 0.82 TOMEKA indexed to BSA (cm^2/m^2): 1.4 MV E max al: 94.7 cm/sec SV(LVOT): 52.9 ml MV A max al: 60.0 cm/sec MV E/A: 1.6 Med Peak E' Al: 6.8 cm/sec E/E' med: 14.0 Lat Peak E' Al: 11.2 cm/sec E/E' lat: 8.5 E/e' average: 11.2 MV dec time: 0.19 sec AV VR_phl: 0.78 MV P1/2t-pr_phl: 54.0 msec TOMEKA(VTI)/BSA_phl: 1.4 Reading Physician:08:47 AM
== END ==
PROVIDERS: Family Provider Internal Medicine; PCP Family Medicine; Referring Provider Family Medicine; Visit Provider Family Medicine
DX: I34.81 Nonrheumatic mitral (valve) annulus calcification (principal); R07.89 Other chest pain
CPT/HCPCS: 93242; 93306

== ENCOUNTER → 2022-06-06 07:48 | Outpatient (CLI) | payer MEDICARE, OTHER, SELFPAY ==
--- NOTE | 2022-06-28 08:02 | P.HOLT.S_ITS ---
[employer] Report Referral & Results Date Patient Seen: 06/06/22 Requesting provider: Brielle Butler Indication: Chest pain Duration of monitoring (days): 7 Diary information: There were 8 patient triggered events and 3 patient diary entries Patient diary entries were associated with sinus rhythm only Patient triggered events were variably associated with (within 45 seconds) sinus rhythm, PACs, and SVT Data: Minimum heart rate identified was 45 beats per minute at 05:10 on 06/07/2022 Maximum sinus heart rate was 153 beats per minute at 14:00 on 06/11/2022 Maximum overall heart rate was 187 beats per minute at 19:53 on 06/06/2022 during a run of SVT Less than 1% of identified beats were ventricular or supraventricular ectopic in origin, which would classify them as rare. There were 5 runs of SVT with the fastest being 11 beat run above rate of 187 beats per minute, which was also a patient triggered event. The longest run of SVT was 17 beats in duration There were no pauses of 3 seconds or longer or episodes of atrial fibrillation identified on this study Impression: 6+ day engine monitor demonstrating rare ectopy and very rare very brief runs of SVT as above. Patient's sense of symptoms may be due to SVT as noted above since 1 of the runs of SVT was a patient triggered event Clinical correlation suggested
== END ==
PROVIDERS: Family Provider Internal Medicine; PCP Family Medicine; Referring Provider Family Medicine; Visit Provider Family Medicine
DX: R07.89 Other chest pain (principal)
CPT/HCPCS: 93242; 93244

== ENCOUNTER → 2023-03-07 10:27 | Outpatient (CLI) | payer MEDICARE, OTHER, SELFPAY ==
--- NOTE | 2023-03-07 | DI.RAD.S_ITS ---
PROCEDURE: XR CLAVICLE LT INDICATIONS: Other specified disorders of bone, shoulder TECHNIQUE: 2 views of the clavicle were acquired. COMPARISON: None. FINDINGS: Bones: No acute fractures or dislocations. No suspicious bony lesions. Soft tissues: No suspicious soft tissue calcifications. IMPRESSION: No acute osseous abnormality. If symptoms persist, follow-up radiographs and/or CT or MRI may be helpful for further evaluation. Dictated by: Ventura Sullivan M.D. on 03/07/2023 at 15:27 Approved by: Ventura Sullivan M.D. on 03/07/2023 at 15:29
== END ==
PROVIDERS: Family Provider Internal Medicine; PCP Family Medicine; Referring Provider Family Medicine; Visit Provider Family Medicine
DX: M89.8X1 Other specified disorders of bone, shoulder (principal)
CPT/HCPCS: 73000

== ENCOUNTER → 2024-01-01 07:31 | Outpatient (CLI) | payer MEDICARE, OTHER, SELFPAY ==
[2024-01-01 09:09] LABS: Hemoglobin A1C% w Est Avg Glu 5.9 % (4.0-6.0)
[2024-01-01 09:49] LABS: Alanine Aminotransferase 41 IU/L (<35); Albumin 4.3 g/dL (3.5-5.0); Alkaline Phosphatase 69 U/L (38-126); Aspartate Aminotransferase 33 IU/L (14-36); Bilirubin Total 0.5 mg/dL (0.2-1.3); Blood Urea Nitrogen 20 mg/dL (7-17); Calcium 9.3 mg/dL (8.4-10.2); Carbon Dioxide 30 mmol/L (22-32); Chloride 106 mmol/L (98-107); Cholesterol 257 mg/dL (140-199); Estimated Glomerular Filt Rate > 60 mL/min (>60); Globulin 2.2 g/dL (1.7-4.1); Glucose 96 mg/dL (80-110); HDL Cholesterol 80 mg/dL (40-60); HEMOLYSIS < 15 (0-50); LDL Cholesterol Calculated 161 mg/dL (<100); Potassium 4.3 mmol/L (3.4-5.1); Sodium 139 mmol/L (137-145); Total Protein 6.5 g/dL (6.3-8.2); Triglycerides 79 mg/dL (35-150)
== END ==
LOC: LAB 07:38
PROVIDERS: Family Provider Internal Medicine; PCP Family Medicine
DX: R73.02 Impaired glucose tolerance (oral) (principal); I65.23 Occlusion and stenosis of bilateral carotid arteries; E78.00 Pure hypercholesterolemia, unspecified
CPT/HCPCS: 36415; 80053; 80061; 83036; 83695

== ENCOUNTER → 2024-03-18 07:17 | Outpatient (CLI) | payer MEDICARE, OTHER, SELFPAY ==
[2024-03-18 09:08] LABS: Cholesterol 157 mg/dL (140-199); HDL Cholesterol 86 mg/dL (40-60); LDL Cholesterol Calculated 57 mg/dL (<100); Triglycerides 71 mg/dL (35-150)
== END ==
LOC: LAB 07:19
PROVIDERS: Family Provider Internal Medicine; PCP Family Medicine; Referring Provider Internal Medicine Endocrinology, Diabetes & Metabolism; Visit Provider Internal Medicine Endocrinology, Diabetes & Metabolism
DX: E78.00 Pure hypercholesterolemia, unspecified (principal); I65.23 Occlusion and stenosis of bilateral carotid arteries
CPT/HCPCS: 36415; 80061

== ENCOUNTER → 2024-06-03 07:02 | Outpatient (CLI) | payer MEDICARE, OTHER, SELFPAY ==
[2024-06-03 07:52] LABS: Hemoglobin A1C% w Est Avg Glu 5.6 % (4.0-6.0)
[2024-06-03 08:11] LABS: Alanine Aminotransferase 30 IU/L (<35); Albumin 4.3 g/dL (3.5-5.0); Albumin Globulin Ratio 2.2 (1.0-2.8); Alkaline Phosphatase 68 U/L (38-126); Aspartate Aminotransferase 33 IU/L (14-36); BUN Creatinine Ratio 18.3 (6-22); Bilirubin Total 0.5 mg/dL (0.2-1.3); Blood Urea Nitrogen 15 mg/dL (7-17); Calcium 9.2 mg/dL (8.4-10.2); Carbon Dioxide 29 mmol/L (22-32); Chloride 105 mmol/L (98-107); Cholesterol 147 mg/dL (140-199); Estimated Glomerular Filt Rate > 60 mL/min (>60); Glucose 94 mg/dL (80-110); HDL Cholesterol 64 mg/dL (40-60); HEMOLYSIS < 15 (0-50); LDL Cholesterol Calculated 50 mg/dL (<100); Potassium 3.8 mmol/L (3.4-5.1); Sodium 140 mmol/L (137-145); Total Protein 6.3 g/dL (6.3-8.2); Triglycerides 166 mg/dL (35-150)
== END ==
PROVIDERS: Family Provider Internal Medicine; PCP Family Medicine; Referring Provider Internal Medicine Endocrinology, Diabetes & Metabolism; Visit Provider Internal Medicine Endocrinology, Diabetes & Metabolism
DX: R73.02 Impaired glucose tolerance (oral) (principal); I65.23 Occlusion and stenosis of bilateral carotid arteries; E78.00 Pure hypercholesterolemia, unspecified
CPT/HCPCS: 36415; 80053; 80061; 83036; 84443

== ENCOUNTER → 2024-11-04 07:06 | Outpatient (CLI) | payer MEDICARE, OTHER, SELFPAY ==
[2024-11-04 08:07] LABS: Hemoglobin A1C% w Est Avg Glu 5.5 % (4.0-6.0)
[2024-11-04 08:16] LABS: Alanine Aminotransferase 47 IU/L (<35); Albumin 4.6 g/dL (3.5-5.0); Albumin Globulin Ratio 2.4 (1.0-2.8); Alkaline Phosphatase 68 U/L (38-126); Aspartate Aminotransferase 40 IU/L (14-36); BUN Creatinine Ratio 18.3 (6-22); Bilirubin Total 0.6 mg/dL (0.2-1.3); Blood Urea Nitrogen 13 mg/dL (7-17); Calcium 9.4 mg/dL (8.4-10.2); Carbon Dioxide 26 mmol/L (22-32); Chloride 106 mmol/L (98-107); Cholesterol 158 mg/dL (140-199); Estimated Glomerular Filt Rate > 60 mL/min (>60); Globulin 1.9 g/dL (1.7-4.1); Glucose 99 mg/dL (70-99); HDL Cholesterol 72 mg/dL (40-60); HEMOLYSIS < 15 (0-50); LDL Cholesterol Calculated 69 mg/dL (<100); Potassium 4.1 mmol/L (3.4-5.1); Sodium 141 mmol/L (137-145); Total Protein 6.5 g/dL (6.3-8.2); Triglycerides 84 mg/dL (35-150)
== END ==
PROVIDERS: Family Provider Internal Medicine; PCP Family Medicine; Referring Provider Internal Medicine Endocrinology, Diabetes & Metabolism; Visit Provider Internal Medicine Endocrinology, Diabetes & Metabolism
DX: R73.02 Impaired glucose tolerance (oral) (principal); E78.00 Pure hypercholesterolemia, unspecified; I25.10 Atherosclerotic heart disease of native coronary artery without angina pectoris
CPT/HCPCS: 36415; 80053; 80061; 83036

== ENCOUNTER → 2025-06-27 07:21 | Outpatient (CLI) | payer MEDICARE, OTHER, SELFPAY ==
[2025-06-27 08:11] LABS: Hemoglobin A1C% w Est Avg Glu 5.8 % (4.0-6.0)
[2025-06-27 08:15] LABS: Alanine Aminotransferase 28 IU/L (<35); Albumin 4.6 g/dL (3.5-5.0); Albumin Globulin Ratio 2.1 (1.0-2.8); Alkaline Phosphatase 66 U/L (38-126); Blood Urea Nitrogen 19 mg/dL (7-17); Calcium 9.3 mg/dL (8.4-10.2); Carbon Dioxide 29 mmol/L (22-32); Chloride 104 mmol/L (98-107); Cholesterol 157 mg/dL (140-199); Estimated Glomerular Filt Rate > 60 mL/min (>60); Globulin 2.2 g/dL (1.7-4.1); Glucose 103 mg/dL (70-99); HDL Cholesterol 74 mg/dL (40-60); HEMOLYSIS < 15 (0-50); Potassium 4.4 mmol/L (3.4-5.1); Sodium 141 mmol/L (137-145); Total Protein 6.8 g/dL (6.3-8.2); Triglycerides 270 mg/dL (35-150)
== END ==
PROVIDERS: Family Provider Internal Medicine; PCP Family Medicine; Referring Provider Internal Medicine Endocrinology, Diabetes & Metabolism; Visit Provider Internal Medicine Endocrinology, Diabetes & Metabolism
DX: E78.00 Pure hypercholesterolemia, unspecified (principal); R73.02 Impaired glucose tolerance (oral); I25.10 Atherosclerotic heart disease of native coronary artery without angina pectoris; Z78.9 Other specified health status
CPT/HCPCS: 36415; 80053; 80061; 83036